=== PATIENT | female | born 1945 | race Two or more races ===

== ENCOUNTER 2018-11-02 13:50 | Emergency (ER) | payer BC, OTHER ==
[2018-11-02 14:09] VITALS: BP 160/63; PULSE 82; TEMP 98.1; BMI 27.2
--- NOTE | 2018-11-02 14:40 | PDOC ---
History of Present Illness - History of Present Illness Initial Comments: 11/02/18 15:00 The patient is a 72 year old female with past medical history of hypertension, hyperlipidemia, NIDDM, and asthma who presents to the ED with complaints of intermittent episodes of shortness of breath over the past month. She reports that a month ago she developed palpitations that prompted her to see her PCP. She was subsequently started on Toprol XL that helped her palpitations, but she believes has been causing her shortness of breath. She denies any associated chest pain, lower extremity edema, hemoptysis,, cough, headache, nausea, vomiting, diarrhea, or urinary complaints. Denies any recent illness, fevers or chills. PCP: Dr. Harsha Atkinson <Khadijah Meraz - Last Filed: 11/02/18 15:02> - General History Source: Patient Exam Limitations: No Limitations <Foreign Friedman - Last Filed: 11/02/18 17:06> - General Chief Complaint: Pain Stated Complaint: ANXIETY Time Seen by Provider: 11/02/18 14:32 Past History <Khadijah Meraz - Last Filed: 11/02/18 15:02> - Past Medical History Anemia: No Asthma: Yes Cancer: No Cardiac Disorders: No CVA: No COPD: No CHF: No Dementia: No Diabetes: Yes (NIDDM) GI Disorders: Yes (SIGMOID DIVERTICULOSIS, WT LOSS, ANOREXIA) Disorders: No HTN: Yes Hypercholesterolemia: Yes Liver Disease: Yes (FATTY LIVER) Seizures: No Thyroid Disease: No - Surgical History Abdominal Surgery: No Appendectomy: No Cardiac Surgery: No Cholecystectomy: No Lung Surgery: No Neurologic Surgery: No Orthopedic Surgery: No - Suicide/Smoking/Psychosocial Hx Smoking History: Never smoked Have you smoked in the past 12 months: No Hx Alcohol Use: No Drug/Substance Use Hx: No Substance Use Type: Alcohol Hx Substance Use Treatment: No <Foreign Friedman - Last Filed: 11/02/18 17:06> - Past Medical History Allergies/Adverse Reactions: Allergies Allergy/AdvReac Type Severity Reaction Status Date / Time No Known Allergies Allergy Verified 11/02/18 14:02 Home Medications: Ambulatory Orders Pioglitazone HCl/Metformin HCl [Actoplus Met Xr 15-1,000 mg Tb] 1 each PO HS 15/10 Metoprolol Succinate [Toprol Xl] mg PO DAILY 11/02/18 Montelukast Na [Singulair -] 10 mg PO HS 11/02/18 Quinapril HCl [Accupril] 20 mg PO DAILY 11/02/18 Simvastatin [Zocor -] 40 mg PO HS 11/02/18 Sitagliptin Phosphate [Januvia] 50 mg PO DAILY@0700 11/02/18 Review of Systems - Review of Systems Able to Perform ROS?: Yes Comments:: 11/02/18 15:00 CONSTITUTIONAL: No reported: Fever, Chills, Diaphoresis, Generalized Weakness, Malaise, Loss of Appetite HEENT: No reported: Rhinorrhea, Nasal Congestion, Throat Pain, Throat Swelling, Difficulty Swallowing, Mouth Swelling, Ear Pain, Eye Pain, Visual Changes CARDIOVASCULAR: No reported: Chest Pain, Syncope, Palpitations, Irregular Heart Rate, Lightheadedness, Peripheral Edema RESPIRATORY: (+) Shortness of breath No reported: Cough, Orthopnea, Wheezing, Stridor, Hemoptysis GASTROINTESTINAL: No reported: Abdominal pain, Abdominal Distension, Nausea, Vomiting, Diarrhea, Constipation, Melena, Hematochezia GENITOURINARY: No reported: Dysuria, Frequency, Urgency, Hesitancy, Flank Pain, Genital Pain MUSCULOSKELETAL: No reported: Myalgia, Arthralgia, Joint Swelling, Back pain, Neck Pain SKIN: No reported: Rash, Itching, Pallor HEMEATOLOGIC/IMMUNOLOGIC: No reported: Easy Bleeding, Easy Bruising, Lymphadenopathy, Frequent infections ENDOCRINE: No reported: Unexplained Weight Gain, Unexplained Weight Loss, Heat Intolerance , Cold Intolerance NEUROLOGIC: No reported: Headache, Focal Weakness, Paresthesias, Vertigo, Lightheadedness, Unsteady Gait, Seizure, Mental Status Changes, Incontinence PSYCHIATRIC: No reported: Anxiety, Depression All Other Systems: Reviewed and Negative <Khadijah Meraz - Last Filed: 11/02/18 15:02> *Physical Exam - Vital Signs Last Vital Signs Temp Pulse Resp BP Pulse Ox 98.1 F 82 18 160/63 97 11/02/18 14:06 11/02/18 14:06 11/02/18 14:06 11/02/18 14:06 11/02/18 14:06 <Khadijah Meraz - Last Filed: 11/02/18 15:02> - Vital Signs Last Vital Signs Temp Pulse Resp BP Pulse Ox 98.1 F 82 18 160/63 97 11/02/18 14:06 11/02/18 14:06 11/02/18 14:06 11/02/18 14:06 11/02/18 14:06 - Physical Exam Comments: 11/02/18 14:51 GENERAL: The patient is awake, alert, and fully oriented, Nontoxic - in no acute distress. HEAD: Normocephalic, atraumatic. EYES: extraocular movements intact, sclera anicteric, conjunctiva clear. ENT: Normal voice, Moist mucous membranes. NECK: Normal range of motion, supple LUNGS: Breath sounds equal, clear to auscultation bilaterally. No wheezes, no rhonchi, no rales. HEART: Regular rate and rhythm, normal S1 and S2 without murmur, rub or gallop. ABDOMEN: Soft, nontender, No guarding, no rebound. No CVA tenderness EXTREMITIES: Normal range of motion, no edema. No clubbing or cyanosis. No cords, erythema, or tenderness. NEUROLOGICAL: No facial assymetry, Normal speech, PSYCH: Normal mood, normal affect. SKIN: Warm, Dry, normal turgor, <Foreign Friedman - Last Filed: 11/02/18 17:06> Moderate Sedation - Procedure Monitoring Vital Signs: Procedure Monitoring Vital Signs Temperature 98.1 F 11/02/18 14:06 Pulse Rate 82 11/02/18 14:06 Respiratory Rate 18 11/02/18 14:06 Blood Pressure 160/63 11/02/18 14:06 O2 Sat by Pulse Oximetry (%) 97 11/02/18 14:06 <Khadijah Meraz - Last Filed: 11/02/18 15:02> - Procedure Monitoring Vital Signs: Procedure Monitoring Vital Signs Temperature 98.1 F 11/02/18 14:06 Pulse Rate 82 11/02/18 14:06 Respiratory Rate 18 11/02/18 14:06 Blood Pressure 160/63 11/02/18 14:06 O2 Sat by Pulse Oximetry (%) 97 11/02/18 14:06 <Foreign Friedman - Last Filed: 11/02/18 17:06> Heart Score/ECG Review - ECG Impressions Comment:: 11/02/18 14:55 Twelve-lead EKG was performed and reviewed by me. There is normal sinus rhythm with a normal rate. rate of 75 The axis is normal. The intervals are normal. There is normal R wave progression There are no ST or T wave abnormalities. Impression: Normal twelve-lead EKG <Foreign Friedman - Last Filed: 11/02/18 17:06> ED Treatment Course - LABORATORY CBC & Chemistry Diagram: 11/02/18 15:40 11/02/18 15:40 <Foreign Friedman - Last Filed: 11/02/18 17:06> Medical Decision Making - Medical Decision Making 11/02/18 14:53 72y F hx of DM, HTN, presents with intermittent sob for the past several weeks since starting metoprolol for palpitations. no associated cp, butterfield, melena/bpr, diarrhea, cough, fever/chills. nonfocal exam will ck labs tor /o anemia, metabolic derangement, ekg to screen fr arrythmia, acs will reassess cxr to r/o acute pulm disease 11/02/18 16:18 The patient's lab work reviewed chem wnl awaiting cbc The patient is requesting to leave, due to take the wait Patient states she is hungry and she cannot wait this long without food thick although she declines a turkey sandwich i implored the ptaient to lisa to await lab work, but it appears as she will leave prior to lab owrk results <Foreign Friedman - Last Filed: 11/02/18 17:06> *DC/Admit/Observation/Transfer - Attestations Scribe Attestion: 11/02/18 15:01 Documentation prepared by Khadijah Meraz, acting as product manager medical device for Foreign Friedman MD. <Khadijah Meraz - Last Filed: 11/02/18 15:02> - Discharge Dispostion Decision to Admit order: No <Foreign Friedman - Last Filed: 11/02/18 17:06> Diagnosis at time of Disposition: SOB (shortness of breath) - Discharge Dispostion Condition at time of disposition: Improved - Referrals Referrals: Harsha Atkinson MD [Primary Care Provider] - - Patient Instructions Printed Discharge Instructions: DI for Shortness of Breath Additional Instructions: Return to the emergency department immediately with ANY new, persistent or worsening symptoms. You MUST call and follow up with your doctor tomorrow for further evaluation of your symptoms. Results were discussed with you. Please make sure your doctor reviews the results of your emergency evaluation. If you had any xrays during your visit, it was read preliminarily by myself, a Radiologist will review it and if there are any additional findings we will call you.
[2018-11-02 16:09] LABS: ALBUMIN 3.6 g/dl (3.4-5.0); ALK PHOS 76 U/L (45-117); ANION GAP 7 MMOL/L (8-16); BASO % 0.4 % (0-2.0); BILIRUBIN,TOTAL 0.3 mg/dL (0.2-1); BLOOD UREA NITROGEN 16 mg/dL (7-18); CALCIUM 8.9 mg/dL (8.5-10.1); CHLORIDE 102 mmol/L (98-107); CO2 28 mmol/L (21-32); CREATININE 0.7 mg/dL (0.55-1.3); EOS % 0.4 % (0-4.5); GLUCOSE,RANDOM 109 mg/dL (74-106); HEMATOCRIT 40.1 % (32.4-45.2); HEMOGLOBIN 13.1 GM/dL (10.7-15.3); LYMPH % 13.8 % (8-40); MCH 30.2 pg (25.7-33.7); MCHC 32.8 g/dl (32.0-36.0); MEAN CELL VOLUME 92.2 fl (80-96); MEAN PLT VOLUME 8.8 fl (7.5-11.1); MONO % 6.9 % (3.8-10.2); NEUT % 78.5 % (42.8-82.8); PLATELET COUNT 224 K/MM3 (134-434); POTASSIUM 4.1 mmol/L (3.5-5.1); RBC 4.34 M/mm3 (3.60-5.2); RDW 13.8 % (11.6-15.6); SGOT/AST 17 U/L (15-37); SGPT/ALT 23 U/L (13-61); SODIUM 137 mmol/L (136-145); TOT PROT 7.4 g/dl (6.4-8.2); WHITE BLOOD COUNT 10.1 K/mm3 (4.0-10.0)
--- NOTE | 2018-11-03 19:01 | EKG ---
Test Reason : Blood Pressure : / mmHG Vent. Rate : 075 BPM Atrial Rate : 075 BPM P-R Int : 158 ms QRS Dur : 088 ms QT Int : 392 ms P-R-T Axes : 044 -17 023 degrees QTc Int : 437 ms NORMAL SINUS RHYTHM NORMAL ECG WHEN COMPARED WITH ECG OF 31-MAR-2009 13:21, NO SIGNIFICANT CHANGE WAS FOUND Confirmed by CHELI PEREZ MD ([id number]) on 11/03/2018 7:00:43 PM Referred By: Confirmed By:CHELI PEREZ MD
== END 2018-11-02 18:00 | disposition home or self-care (01) ==
LOC: JER 13:50
DX: R06.02 Shortness of breath (principal); I10 Essential (primary) hypertension; E78.5 Hyperlipidemia, unspecified; E11.9 Type 2 diabetes mellitus without complications; Z79.84 Long term (current) use of oral hypoglycemic drugs; J44.9 Chronic obstructive pulmonary disease, unspecified; Z87.19 Personal history of other diseases of the digestive system
CPT/HCPCS: 36415; 80053; 82550; 84484; 85025; 93005; 93010; 99281-25

== ENCOUNTER 2018-11-03 10:54 | Emergency (ER) | payer OTHER ==
--- NOTE | 2018-11-03 11:04 | PDOC ---
History of Present Illness - General Stated Complaint: ABD PAIN,VOMITING Time Seen by Provider: 11/03/18 11:00 - History of Present Illness Initial Comments: 11/03/18 11:12 The patient is a 72 year old female with a history of HTN, HLD, DM, Asthma who presents for evaluation of nausea, vomiting, abdominal pain. The patient reports onset of nausea with 5 episodes of non-bilious, non-bloody vomiting with associated poorly described abdominal pain prompting her presentation to the ED for further evaluation. She states that her symptoms have completely resolved on presentation to the ED and is currently asymptomatic. She notes that she presented to the ED 1 day ago for shortness of breath, but left prior to receiving the results of her work up. She otherwise denies fevers, chills, SOB, chest pain, or changes with urination or bowel movements. Past History - Past Medical History Allergies/Adverse Reactions: Allergies Allergy/AdvReac Type Severity Reaction Status Date / Time No Known Allergies Allergy Verified 11/02/18 14:02 Home Medications: Ambulatory Orders Pioglitazone HCl/Metformin HCl [Actoplus Met Xr 15-1,000 mg Tb] 1 each PO HS 15/10 Metoprolol Succinate [Toprol Xl] mg PO DAILY 11/02/18 Montelukast Na [Singulair -] 10 mg PO HS 11/02/18 Quinapril HCl [Accupril] 20 mg PO DAILY 11/02/18 Simvastatin [Zocor -] 40 mg PO HS 11/02/18 Sitagliptin Phosphate [Januvia] 50 mg PO DAILY@0700 11/02/18 Ondansetron [Zofran -] 4 mg PO TID #21 tablet 11/03/18 Anemia: No Asthma: Yes Cancer: No Cardiac Disorders: No CVA: No COPD: No CHF: No Dementia: No Diabetes: Yes (NIDDM) GI Disorders: Yes (SIGMOID DIVERTICULOSIS, WT LOSS, ANOREXIA) Disorders: No HTN: Yes Hypercholesterolemia: Yes Liver Disease: Yes (FATTY LIVER) Seizures: No Thyroid Disease: No - Surgical History Abdominal Surgery: No Appendectomy: No Cardiac Surgery: No Cholecystectomy: No Lung Surgery: No Neurologic Surgery: No Orthopedic Surgery: No - Suicide/Smoking/Psychosocial Hx Smoking History: Never smoked Have you smoked in the past 12 months: No Hx Alcohol Use: No Drug/Substance Use Hx: No Substance Use Type: Alcohol Hx Substance Use Treatment: No Review of Systems - Review of Systems Comments:: 11/03/18 11:18 Constitutional: No fevers, chills, fatigue, malaise HEENT: No Rhinorrhea, nasal congestion, visual changes Cardiovascular: No chest pain, syncope, palpitations, lightheadedness Respiratory: No Cough, SOB, Hemoptysis, Gastrointestinal: Abdominal pain, nausea, vomiting. No Constipation, Diarrhea, Melena Genitourinary: No Dysuria, Frequency, Urgency, Hesitancy, Hematuria, Flank pain Musculoskeletal: No Myalgia, arthralgia Skin: No rashes, itching, bruising, pallor Neurologic: No Headache, Dizziness, Numbness, Weakness, or Tingling Psychiatric: No Hallucinations. No SI or HI *Physical Exam - Physical Exam Comments: 11/03/18 11:23 General Appearance: Nourished. No Apparent Distress HEENT: No Pharyngeal Erythema, Tonsillar Exudate, Tonsillar Erythema Neck: No Cervical Lymphadenopathy Respiratory/Chest: Lungs Clear, Normal Breath Sounds. No Crackles, Rales, Rhonchi, Wheezing Cardiovascular: Regular Rhythm, Regular Rate. No Murmur, Gallops, Rubs Gastrointestinal/Abdominal: Normal Bowel Sounds, Soft. No Guarding, Rebound, Tenderness Musculoskeletal: No CVA Tenderness Extremity: Normal Capillary Refill Integumentary: Normal Color, Dry, Warm Neurologic: Fully Oriented, Alert, Normal Mood/Affect, Normal Response, Heart Score/ECG Review #1 ECG reviewed & interpreted by me at: 11:23 General ECG Interpretation: Sinus Rhythm, Normal Rate, Normal Intervals, No acute ischemic changes 11/03/18 11:23 Sinus Rhythm with premature atrial complexes ED Treatment Course - LABORATORY CBC & Chemistry Diagram: 11/03/18 11:20 11/03/18 11:20 Medical Decision Making - Medical Decision Making 11/03/18 11:24 The patient is a 72 year old female with a history of HTN, HLD, DM, Asthma who presents for evaluation of nausea, vomiting, abdominal pain. Differential includes but is not limited to: ACS, Viral Gastroenteritis, Pancreatitis, Infectious, Metabolic Derangement. The patient appears clinically well in the ED and is currently asymptomatic. Given the patient's history and physical exam , we will obtain a cbc, cmp, troponin, lipase, ekg to evaluate further. We will continue to monitor and reassess while here in the ED. 11/03/18 12:26 CBC, cmp, troponin, lipase are unremarkable. The patient continues to appear clinically well on exam and is currently asymptomatic. We are comfortable discharging the patient home with primary care provider follow up. We discussed the results, plan, and return precautions with the patient who voiced understanding and is agreeable with the plan. *DC/Admit/Observation/Transfer Diagnosis at time of Disposition: Abdominal pain Qualifiers: Abdominal location: unspecified location Qualified Code(s): R10.9 - Unspecified abdominal pain Vomiting Qualifiers: Vomiting type: unspecified Vomiting Intractability: unspecified Nausea presence : unspecified Qualified Code(s): R11.10 - Vomiting, unspecified - Discharge Dispostion Disposition: HOME Condition at time of disposition: Stable Decision to Admit order: No - Prescriptions Prescriptions: Ondansetron [Zofran -] 4 mg PO TID #21 tablet - Referrals Referrals: Harsha Atkinson MD [Primary Care Provider] - - Patient Instructions Printed Discharge Instructions: Nausea and Vomiting-Adult Additional Instructions: Please return to the ER if you experience concerning or worsening symptoms including worsening difficulty breathing, weakness, or chest pain, fever, abdominal pain, vomiting. Your lab results were normal here in the ER. Please call to schedule a follow up appointment with your primary care provider within 2-3 days to discuss your ER visit and further management of your symptoms. - Post Discharge Activity Forms/Work/School Notes: Back to Work
--- NOTE | 2018-11-03 11:07 | PDOC ---
Attending Attestation - HPI HPI: 11/03/18 11:25 The patient is a 72 year old female, with a significant past medical history of diabetes, hypertension, hyperlipidemia, asthma, who presents to the emergency department with complaint of nausea, periumbilical pain, and 4 episodes of NBNB emesis today while at work. She denies any nausea, vomiting, or pain now. She states she was seen in the ED yesterday, however, left before receiving her lab results. She states she ate dry cereal for breakfast. 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 She denies any other symptoms. The patient denies chest pain, shortness of breath, headache and dizziness. The patient denies fever, chills, diarrhea and constipation. The patient denies dysuria, frequency, urgency and hematuria. Allergies: NKDA Past surgical history: PCP - De. Harsha Atkinson - Physicial Exam PE: 11/03/18 11:27 GENERAL: The patient is in no acute distress. HEAD: Normal with no signs of trauma. EYES: PERRLA, EOMI, sclera anicteric, conjunctiva clear. ENT: Ears normal, nares patent, oropharynx clear without exudates. Moist mucous membranes. NECK: Normal range of motion, supple without lymphadenopathy, JVD, or masses. LUNGS: Breath sounds equal, clear to auscultation bilaterally. No wheezes, and no crackles. HEART:(+) Systolic murmur. Regular rate and rhythm, normal S1 and S2 without rub or gallop. ABDOMEN: (+) mild left lower quadrant discomfort on palpation. Soft, normoactive bowel sounds. No guarding, no rebound. No masses palpable. EXTREMITIES: Normal range of motion, no edema. No clubbing or cyanosis. No erythema, or tenderness. NEUROLOGICAL: Cranial nerves II through XII grossly intact. Normal speech. No focal neurological deficits. MUSCULOSKELETAL: Back non-tender to palpation, no CVA tenderness SKIN: Warm, Dry, normal turgor, no rashes or lesions noted. - Medical Decision Making 11/03/18 11:28 Documentation prepared by Saira Sanderson, acting as medical staff services manager for Catrachita Saleem MD <Saira Sanderson - Last Filed: 11/03/18 11:25> - Resident Resident Name: Mratin Casanova - ED Attending Attestation I have performed the following: I have examined & evaluated the patient, The case was reviewed & discussed with the resident, I agree w/resident's findings & plan, Exceptions are as noted - Medical Decision Making 11/03/18 11:17 EKG - Twelve-lead EKG was performed and reviewed by me. There is normal sinus rhythm with a normal rate of 68 bpm. The axis is normal. The intervals are normal. There are no ST or T wave abnormalities. Impression: Normal twelve-lead EKG 11/03/18 12:16 Laboratory Tests 11/03/18 11/03/18 11/03/18 11:20 11:20 11:20 WBC 13.1 H Hgb 13.1 Hct 38.0 Plt Count 211 Neutrophils % 88.9 H Lymphocytes % 6.3 L D Sodium 136 Potassium 4.1 Chloride 100 BUN 19 H Creatinine 0.8 Random Glucose 173 H Lactic Acid 1.5 Creatine Kinase 87 Troponin I < 0.02 Lipase 163 11/03/18 12:29 Pt re assessed Pt states she feels better Will discharge to home No abdominal tenderness, no guarding Lactate nml - unlikely ischemic colitis No indication for CT scan <Catrachita Saleem - Last Filed: 11/05/18 07:41>
[2018-11-03 11:13] VITALS: BMI 27.2
[2018-11-03 11:29] LABS: BASO % 0.2 % (0-2.0); EOS % 0.5 % (0-4.5); HEMOGLOBIN 13.1 GM/dL (10.7-15.3); LYMPH % 6.3 % (8-40); MCH 31.6 pg (25.7-33.7); MCHC 34.5 g/dl (32.0-36.0); MEAN CELL VOLUME 91.7 fl (80-96); MEAN PLT VOLUME 8.5 fl (7.5-11.1); MONO % 4.1 % (3.8-10.2); NEUT % 88.9 % (42.8-82.8); PLATELET COUNT 211 K/MM3 (134-434); RBC 4.15 M/mm3 (3.60-5.2); RDW 13.8 % (11.6-15.6); WHITE BLOOD COUNT 13.1 K/mm3 (4.0-10.0)
[2018-11-03 12:07] LABS: ALBUMIN 3.3 g/dl (3.4-5.0); ALK PHOS 69 U/L (45-117); ANION GAP 7 MMOL/L (8-16); BILIRUBIN,TOTAL 0.4 mg/dL (0.2-1); BLOOD UREA NITROGEN 19 mg/dL (7-18); CALCIUM 8.7 mg/dL (8.5-10.1); CHLORIDE 100 mmol/L (98-107); CO2 29 mmol/L (21-32); CREATININE 0.8 mg/dL (0.55-1.3); GLUCOSE,RANDOM 173 mg/dL (74-106); LIPASE 163 U/L (73-393); POTASSIUM 4.1 mmol/L (3.5-5.1); SGOT/AST 18 U/L (15-37); SGPT/ALT 23 U/L (13-61); SODIUM 136 mmol/L (136-145); TOT PROT 6.9 g/dl (6.4-8.2)
[2018-11-03 12:58] VITALS: BP 168/51; PULSE 67; TEMP 98.1
--- NOTE | 2018-11-03 18:49 | EKG ---
Test Reason : Blood Pressure : / mmHG Vent. Rate : 068 BPM Atrial Rate : 068 BPM P-R Int : 186 ms QRS Dur : 090 ms QT Int : 434 ms P-R-T Axes : 086 -13 026 degrees QTc Int : 461 ms SINUS RHYTHM WITH PREMATURE ATRIAL COMPLEXES OTHERWISE NORMAL ECG WHEN COMPARED WITH ECG OF 02-NOV-2018 14:15, PREMATURE ATRIAL COMPLEXES ARE NOW PRESENT Confirmed by CHRIS BOND, CHELI ([id number]) on 11/03/2018 6:49:24 PM Referred By: Confirmed By:CHELI PEREZ MD
== END 2018-11-03 13:00 | disposition home or self-care (01) ==
LOC: JER 10:54
DX: R11.10 Vomiting, unspecified (principal); R10.9 Unspecified abdominal pain; I10 Essential (primary) hypertension; E78.5 Hyperlipidemia, unspecified; E11.9 Type 2 diabetes mellitus without complications; J45.909 Unspecified asthma, uncomplicated
CPT/HCPCS: 36415; 80053; 82550; 83605; 83690; 84484; 85025; 93005; 93010; 99283-25